=== PATIENT | female | born 1945 | race Caucasian/White ===

== ENCOUNTER → 2017-03-19 | Outpatient (CLI) | payer MEDICARE, OTHER ==
[~2017-03-19] MED LIST: ACTOS; ASPIRIN; ATENOLOL; CERTAGEN PO; COUMADIN PO; CRANBERRY; DICLOFENAC; FISH OIL 1,0001 CAP PO; GLUCOSAMINE CHON; GLYBURIDE; LIPITOR; LOPRESSOR PO; NORVASC; SYNTHROID PO; VITAMIN D 4001 UDTAB PO
--- NOTE | ~2017-03-19 | MY29 ---
[facility] A Service of [facility] RADIOLOGY TEXT RESULTS PATIENT: IDALIA WILEY LOCATION: [facility] : 47 UNIT #: [id number] AGE: [address]: Garret Cheung MD SEX: F ORDER DR: [id number] [facility] [address] [place], [place] [address] [id number] O MR#: [id number] Acc #: [id number] NAME: IDALIA WILEY : 1945 SEX: F STUDY DATE/TIME: 03/19/2017 13:55 UNIT: [facility] ROOM: STUDY DESCRIPTION: MY ANNE SCREENING W/ CAD BILAT Attending Physician: Garret Cheung M.D. Referring Physician: Garret Cheung M.D. Ordering Physician: Garret Cheung M.D. Primary Care Physician: Garret Cheung M.D. MEDICAL IMAGING REPORT This report is preliminary unless electronic signature is present EXAM Digital screening mammogram, 03/19/17; [facility]. HISTORY 71-year-old woman, previous right lumpectomy with adjuvant therapy 1999. Annual screen. COMPARISON Mammograms date to 03/24/12, with most recent 02/24/16. TECHNIQUE Digital imaging of each breast was completed utilizing screening protocol. Additional true lateral and exaggerated craniocaudal views of the right breast are provided. Review includes FDA-approved CAD device. FINDINGS Breast parenchyma is fatty replaced. Size asymmetry is evident. Post-radiation skin thickening right breast is unchanged. Several benign calcifications are stable in the right breast. I see no interval occurring mass. There are no suspicious microcalcifications and no architectural distortion. IMPRESSION Negative mammogram. Stable post-lumpectomy findings right breast. Annual screening recommended. Patients over the age of 40 are entered into a reminder system with target due date for the next mammogram. A result letter will also be sent to the patient. BIRADS: 1 Negative. [facility] A Service of [facility] RADIOLOGY TEXT RESULTS PATIENT: IDALIA WILEY LOCATION: [facility] : 47 UNIT #: [id number] AGE: [address]: Garret Cheung MD SEX: F ORDER DR: Dictated by... Samuel Howell M.D. THIS IS AN ELECTRONICALLY VERIFIED REPORT Samuel Howell M.D. at 03/22/2017 8:11 AM ADELINA/keegan TD: 03/19/2017 16:54 JOB #: [id number] MEDICAL IMAGING REPORT Page 1 of 1 COPY
== END | disposition home or self-care (01) ==
LOC: CWCC 13:29
DX: Z12.31 Encounter for screening mammogram for malignant neoplasm of breast (principal); Z98.890 Other specified postprocedural states
CPT/HCPCS: G0202